=== PATIENT | female | born 1980 | race Caucasian/White ===

== ENCOUNTER 2018-10-26 18:16 | Observation (INO) | payer OTHER ==
[~2018-10-26] VITALS: Ht 162.6 cm; Wt 59.0 kg
[~2018-10-26 18:16] MED LIST: ALBU90OI INH; AMOX500 PO; AZIT250 PO; Azithromycin250 MG PO; Crutch1 EACH MISC; DEXT30SU PO; HYDACE5 PO; IBUP600 PO; LEVFLO500 PO; Mucinex600 MG PO; NAPR500 PO; Norco 10-325 T1 EACH PO; Norco 5-325 Ta1 EACH PO; PRODEXEL PO; Prednisone20 MG PO; Ventolin/Prove6.7 GM INH; Zofran Odt8 MG SL; [UNRECOGNIZED DRUG - CODE] PO
[2018-10-26 20:30] LABS: Calcium, Ionized (POC) 1.11 mmol/L (1.10-1.46); Chloride (POC) 106 mmol/L (98-108); Creatinine (POC) 0.7 mg/dL (0.6-1.0); Glucose (ISTAT POC) 90 mg/dL (70-99); Hemoglobin (POC) 14.3 g/dL (12.0-16.0); Potassium (POC) 3.6 mmol/L (3.5-5.5); Sodium (POC) 140 mmol/L (135-148); Total CO2 (POC) 22 mmol/L (21-32)
--- NOTE | 2018-10-28 07:49 | NUR ---
SHIFT SUMMARY PT A&O X4 T/O SHIFT. CHEST TUBE TO R ANT CHEST WALL TO WATER SEAL AND SUCTION PER ORERS. LS CLEARER THIS AM IN RL BASE. PT DENIES SOB T/O SHIFT; RA. PAIN MANGED PER EMAR. PT INDEPENDENT IN ROOM. PT ACCEDENTLY PULLED ON TUBE APPROX. 0140, SLIGHT GAP BETWEEN DRESSING AND SKIN TOP OF DRESSING NOTED; REINFORED FLUSH WITH SKING, LS CLEAR, PT DENIES SOB OR CHANGE IN PAIN, O2 SATS 100% ON RA; CHEST TUBE WATER SEAL WITHOUT LEAKS; CHARGE AND RN STRUCTURAL DRAFTSMAN NOTIFIED; REASSESSED 0210 AND BEFORE SHIFT CHANGE. NO CHANGE IN PT CONDITION. NO CREPITUS NOTED TO CHEST WALL/SHOULDER/NECKLINE T/O SHIFT. DR. FRYE NOTIFIED IN PERSON DURING AM ROUNDS. CALL LIGHT IN REACH; PT DEMONSTRATES USE. REPORT GIVEN TO DAY SHIFT RN.
--- NOTE | 2018-10-28 15:59 | NUR ---
1258 ITCHING BENADRYL GIVEN PER PATIENT REQUEST FOR ITCHING. NO VISIBLE REDNESS OR RASH. PATIENT REQUESTS DOOR BE SHUT AND NURSE ROUNDING NOT BE DONE PATIENT STATES SHE WILL PRESS CALL LIGHT IF SHE NEEDS ANYTHING
--- NOTE | 2018-10-28 16:01 | NUR ---
0523 ROUNDING PATIENT REQUESTS DOOR TO ROOM BE SHUT AND NO NURSE ROUNDING BE DONE SHE WOULD LIKE TO SLEEP PATIENT WILL USE CALL LIGHT IF SHE HAS ANY NEEDS
--- NOTE | 2018-10-28 16:34 | NUR ---
PATIENT NAUSEATED AND SOME BILE EMESIS. MEDICATED WITH ANTIEMETIC
--- NOTE | 2018-10-28 17:46 | NUR ---
SUMMARY PATIENT PAIN CURRENTLY 2/10 FEELS THAT TORADOL WAS EFFECTIVE, PT DENIES ITCHING AT THIS TIME. CHEST TUBE WITHOUT OUTPUT, NO AIR LEAK OR CREPITUS PATIENT DENIES SOB
--- NOTE | 2018-10-28 20:30 | NUR ---
PT WAS VERY AGITATED AND SWEARING AT HER NURSE, C/O DOSAGE ON MEDICATION AND GENERALIZED CARE SINCE COMING TO THE HOSPITAL. PT STATES SHE "WANTS TO GO HOME AND SHE IS READY TO RIP THE CHEST TUBE OUT", PT DENIES PAIN, PT IS C/O ITCHING AND LACK OF SLEEP. BED BATH AND LINEN CHAGE WAS OFFERED, SHE REFUSED. PT WAS QUESTIONED ABOUT POSSIBLE WITHDRAWAL. PT DENIES SUBSTANCE ABUSE, STATES SHE SMOKES 1 PACK PER DAY AND TAKES 50 MG PO BEDEDRYL AT HOME. PT HAS NICOTINE GUM ORDERED BUT STATES IT WAS MAKING HER NAUSEOUS. I WAS ABLE TO CALM THE PT. THE SURGEON WAS CALLED BY THE RN TO OBTAIN 50 MG PO BENADRYL FOR ITCHING AND A NICOTINE PATCH. PRN AMBIEN WAS ALSO ORDERED.
--- NOTE | 2018-10-29 04:54 | NUR ---
SUMMARY AFTER MEDICATING WITH ADDITIONAL BENADRYL AND NICOTINE PATCH, PT APPEARS CALMER NOT CURSING AT NURSE. DENIED FURTHER NEED. SLEPT BETWEEN DOSING INCLUDING PO PAIN MED X 1. NIGHT PROGRESSED PT DISCUSSED TX PLAN,MEDS,AND LAB, XRAY RESULTS WERE RELAYED TO HER BY DOCTORS AND PT AGREED TO USE I.S. WHICH SHE PREVIOUSLY REFUSED. I ALSO AVISED PT IF SHE HAS FURTHER QUESTIONS THAT HAVE BEEN CONCERNING HER OR SHE FEELS NOT FULLY ANSWERED, THE DOCTOR CAN BE ASKED FOR MORE DETAILS WHEN HE MAKES ROUNDS TODAY.PT DECLINED OFFER OF SLEEPER TONIGHT AND HAS CONTINUED TO DENY ANY FURTHER NEEDS T/O NIGHT. REPORTS PLEASED WITH BENADRYL SHE HAS BEEN ABLE TO SLEEP AND ITCHING HAS BEEN MINIMAL.CONT TO DENY CP OR SOB. PLEURAVAC REMAINS AT 20 CM H2O WITH WALL SX.
[2018-10-29] MEDS ORDERED: Norco 10-325 T1 EACH PO (14:32)
--- NOTE | 2018-10-29 14:51 | NUR ---
DISCHARGED PT DC'D. DC'D IV, CATHETER INTACT. REVIEWED DC PAPERWORK W/PT; VERBALIZED UNDERSTANDING. PT LEFT UNIT IN WC W/POSSESSIONS AND DC PAPERWORK IN HAND.
== END 2018-10-29 14:53 | disposition home or self-care (01) ==
LOC: ER 18:16 → ERHOLD 18:17 → SURS 10-27 12:31
PROVIDERS: Physician Assistant; ADMIT Surgery
DX: J93.83 Other pneumothorax (principal); J43.9 Emphysema, unspecified; R79.89 Other specified abnormal findings of blood chemistry; F17.210 Nicotine dependence, cigarettes, uncomplicated
CPT/HCPCS: 32551; 71045; 71046; 71250; 71260; 80047; 85014; 85379; 96372; 96374; 96375; 96376; 99285-25; G0378; J1170; J1650; J1885; J2060; J2405; J3010; Q0163; Q9967

== ENCOUNTER 2018-12-20 22:26 | Emergency (ER) | payer SELFPAY ==
[~2018-12-20] VITALS: Ht 162.6 cm; Wt 59.0 kg
[2018-12-20] MEDS ORDERED: Cheratussin AC118 ML PO (23:26)
== END 2018-12-20 23:32 | disposition home or self-care (01) ==
LOC: ER 22:26
DX: R07.89 Other chest pain (principal); F17.210 Nicotine dependence, cigarettes, uncomplicated
CPT/HCPCS: 71046; 99283-25

== ENCOUNTER 2018-12-28 17:00 | Emergency (ER) | payer SELFPAY ==
[~2018-12-28] VITALS: Ht 162.6 cm; Wt 59.0 kg
[~2018-12-28 17:00] MED LIST changes: +Cheratussin AC118 ML PO
[2018-12-28] MEDS ORDERED: TUSSIONEX PENN115 ML PO (18:21)
[2018-12-28] MEDS ORDERED: Zithromax250 MG PO (18:23)
== END 2018-12-28 18:27 | disposition home or self-care (01) ==
LOC: ER 17:00
DX: R05 Cough (principal); F17.210 Nicotine dependence, cigarettes, uncomplicated
CPT/HCPCS: 99283

== ENCOUNTER 2019-04-04 16:11 | Emergency (ER) | payer SELFPAY ==
[~2019-04-04] VITALS: Ht 162.6 cm; Wt 59.0 kg
[~2019-04-04 16:11] MED LIST changes: +BENZ100A PO; +Flonase 0.05% N16 GM; +Sudogest30 MG PO; +TUSSIONEX PENN115 ML PO; +Zithromax250 MG PO
[2019-04-04 16:55] LABS: BASOPHILS ABSOLUTE AUTO 0.04 K/mm3 (0.00-0.23); BASOPHILS PERCENT AUTO 0 % (0-2); EOSINOPHILS ABSOLUTE AUTO 0.14 K/mm3 (0.00-0.68); EOSINOPHILS PERCENT AUTO 2 % (0-6); Hematocrit 41.9 % (33.0-51.0); Hemoglobin 13.9 g/dL (11.5-16.0); IMMATURE GRAN ABSOLUTE AUTO 0.02 K/mm3 (0.00-0.10); IMMATURE GRAN PERCENT AUTO 0 % (0-1); LYMPHOCYTES PERCENT AUTO 20 % (21-46); MONOCYTES ABSOLUTE AUTO 0.64 K/mm3 (0.16-1.47); MONOCYTES PERCENT AUTO 7 % (4-13); Mean Corpuscular HGB 32.3 pg (26.0-34.0); Mean Corpuscular HGB Conc 33.2 g/dL (31.5-36.5); Mean Corpuscular Volume 97 fL (80-100); Mean Platelet Volume 10.3 fL (9.1-12.4); NEUTROPHILS ABSOLUTE AUTO 6.73 K/mm3 (1.96-9.15); NEUTROPHILS PERCENT AUTO 71 % (41-73); Platelet Count 362 K/mm3 (150-400); RDW Coefficient Variation 13.2 % (11.7-14.2); RDW Standard Deviation 48.1 fL (35.1-46.3); Red Blood Cell Count 4.31 M/mm3 (3.80-5.20); White Blood Cell Count 9.47 K/mm3 (4.00-11.30)
[2019-04-04 17:17] LABS: Alanine Aminotransfer (ALT/SGP 22 U/L (12-78); Albumin, Blood 3.9 g/dL (3.4-5.0); Albumin/Globulin Ratio 1.1 (0.8-1.8); Alk Phos 61 U/L (50-136); Anion Gap 5 mmol/L (6-16); Aspartate Aminotrans (AST/SGOT 18 U/L (12-37); Bilirubin, Total 0.7 mg/dL (0.1-1.0); Blood Urea Nitrogen 11 mg/dL (8-24); Bun/Creatinine Ratio 13.7 (12.0-20.0); CO2, Blood 26 mmol/L (21-32); Calcium, Blood 8.6 mg/dL (8.5-10.1); Chloride, Blood 105 mmol/L (98-108); Globulin, Blood 3.4 g/dL (2.2-4.0); Glomerular Filtration Rate >60 (60-); Glucose, Blood 113 mg/dL (70-99); Potassium, Blood 3.6 mmol/L (3.5-5.5); Sodium, Blood 136 mmol/L (136-145); Total Protein, Blood 7.3 g/dL (6.4-8.2); Troponin I <0.015 ng/mL (0.000-0.040)
[2019-04-04] MEDS ORDERED: Norco 5-325 Ta1 EACH PO (18:19)
[2019-04-04] MEDS ORDERED: IBUP600 PO (18:19)
== END 2019-04-04 18:27 | disposition home or self-care (01) ==
LOC: ER 16:11
PROVIDERS: Physician Assistant
DX: R09.1 Pleurisy (principal); F17.200 Nicotine dependence, unspecified, uncomplicated
CPT/HCPCS: 36415; 71046; 80053; 84484; 85025; 93005; 93010; 96374; 99284-25; J1885

== ENCOUNTER → 2022-10-20 | Outpatient (CLI) | payer BC ==
[2022-10-21 10:14] LABS: Alanine Aminotransfer (ALT/SGP 36 U/L (12-78); Albumin, Blood 4.1 g/dL (3.4-5.0); Albumin/Globulin Ratio 1.1 (0.8-1.8); Alk Phos 66 U/L (50-136); Anion Gap 3 mmol/L (6-16); Aspartate Aminotrans (AST/SGOT 21 U/L (12-37); Bilirubin, Total 0.3 mg/dL (0.1-1.0); Blood Urea Nitrogen 11 mg/dL (8-24); CHOL/HDL RATIO 2.8; CO2, Blood 28 mmol/L (21-32); Calcium, Blood 9.4 mg/dL (8.5-10.1); Chloride, Blood 106 mmol/L (98-108); Cholesterol 193 mg/dL (50-200); Creatinine, Blood 0.79 mg/dL (0.40-1.00); Ferritin, Serum 45 ng/mL (8-252); Globulin, Blood 3.7 g/dL (2.2-4.0); Glomerular Filtration Rate 95 (60-); Glucose, Blood 107 mg/dL (70-99); HDL Cholesterol 69 mg/dL (>39); Iron Serum 56 ug/dL (50-170); LDL/HDL RATIO 1.6; Low Density Lipoprotein Chol 109 mg/dL (0-110); Percent Saturation 15.3 % (15.0-50.0); Potassium, Blood 4.5 mmol/L (3.5-5.5); Sodium, Blood 137 mmol/L (136-145); Total Iron Binding Capacity 365 ug/dL (250-450); Total Protein, Blood 7.8 g/dL (6.4-8.2); Triglycerides 76 mg/dL (30-160); Very Low Density Lipoprot Chol 15 mg/dL (6-32)
[2022-10-21 10:15] LABS: BASOPHILS ABSOLUTE AUTO 0.04 K/mm3 (0.00-0.23); BASOPHILS PERCENT AUTO 1 % (0-2); EOSINOPHILS PERCENT AUTO 1 % (0-6); Hematocrit 46.3 % (33.0-51.0); Hemoglobin 15.9 g/dL (11.5-16.0); IMMATURE GRAN ABSOLUTE AUTO 0.04 K/mm3 (0.00-0.10); IMMATURE GRAN PERCENT AUTO 1 % (0-1); LYMPHOCYTES PERCENT AUTO 26 % (21-46); MONOCYTES ABSOLUTE AUTO 0.51 K/mm3 (0.16-1.47); MONOCYTES PERCENT AUTO 6 % (4-13); Mean Corpuscular HGB 32.1 pg (26.0-34.0); Mean Corpuscular HGB Conc 34.3 g/dL (31.5-36.5); Mean Corpuscular Volume 93 fL (80-100); Mean Platelet Volume 11.2 fL (9.1-12.4); NEUTROPHILS ABSOLUTE AUTO 5.83 K/mm3 (1.96-9.15); NEUTROPHILS PERCENT AUTO 66 % (41-73); Platelet Count 413 K/mm3 (150-400); RDW Standard Deviation 44.7 fL (35.1-46.3); Red Blood Cell Count 4.96 M/mm3 (3.80-5.20); White Blood Cell Count 8.82 K/mm3 (4.00-11.30)
[2022-10-21 12:08] LABS: Free Thyroxine 0.77 ng/dL (0.70-1.60)
[2022-10-22 08:13] LABS: HIV AB/P24 AG SCREEN Non Reactive (Non Reactive)
== END | disposition home or self-care (01) ==
LOC: LAB 15:46 → LAB SHORT 15:46
PROVIDERS: Family Medicine
DX: Z11.3 Encounter for screening for infections with a predominantly sexual mode of transmission (principal); Z11.59 Encounter for screening for other viral diseases; Z13.6 Encounter for screening for cardiovascular disorders; Z72.51 High risk heterosexual behavior; L65.9 Nonscarring hair loss, unspecified; Z91.89 Other specified personal risk factors, not elsewhere classified; Z79.899 Other long term (current) drug therapy
CPT/HCPCS: 80053; 80061; 82728; 83540; 83550; 84439; 84443; 85025; 86592; 86803; 87389

== ENCOUNTER 2024-09-24 09:57 | Emergency (ER) | payer BC ==
[~2024-09-24] VITALS: Ht 162.6 cm; Wt 59.0 kg
[2024-09-24 10:02] VITALS: BP 147/111
== END 2024-09-24 13:15 | disposition left against medical advice (07) ==
LOC: ER 09:57
DX: R06.02 Shortness of breath (principal); Z53.29 Procedure and treatment not carried out because of patient's decision for other reasons
CPT/HCPCS: 71046; 99281-25

== ENCOUNTER 2024-09-25 12:53 | Emergency (ER) | payer BC ==
[~2024-09-25] VITALS: Ht 160 cm; Wt 59.0 kg
[2024-09-25 13:25] VITALS: BP 137/103
[2024-09-25 13:51] LABS: BASOPHILS ABSOLUTE AUTO 0.05 K/mm3 (0.00-0.23); BASOPHILS PERCENT AUTO 1 % (0-2); EOSINOPHILS ABSOLUTE AUTO 0.37 K/mm3 (0.00-0.68); EOSINOPHILS PERCENT AUTO 6 % (0-6); Hematocrit 42.5 % (33.0-51.0); Hemoglobin 14.5 g/dL (11.5-16.0); IMMATURE GRAN ABSOLUTE AUTO 0.01 K/mm3 (0.00-0.10); IMMATURE GRAN PERCENT AUTO 0 % (0-1); LYMPHOCYTES ABSOLUTE AUTO 0.98 K/mm3 (0.84-5.20); LYMPHOCYTES PERCENT AUTO 15 % (21-46); MONOCYTES ABSOLUTE AUTO 0.62 K/mm3 (0.16-1.47); MONOCYTES PERCENT AUTO 9 % (4-13); Mean Corpuscular HGB 33.3 pg (26.0-34.0); Mean Corpuscular HGB Conc 34.1 g/dL (31.5-36.5); Mean Corpuscular Volume 98 fL (80-100); Mean Platelet Volume 9.4 fL (9.1-12.4); NEUTROPHILS ABSOLUTE AUTO 4.56 K/mm3 (1.96-9.15); NEUTROPHILS PERCENT AUTO 69 % (41-73); Platelet Count 402 K/mm3 (150-400); RDW Coefficient Variation 13.4 % (11.7-14.2); Red Blood Cell Count 4.36 M/mm3 (3.80-5.20); White Blood Cell Count 6.59 K/mm3 (4.00-11.30)
[2024-09-25 14:18] LABS: Albumin, Blood 3.3 g/dL (3.4-5.0); Albumin/Globulin Ratio 0.8 (0.8-1.8); Bilirubin, Total 0.6 mg/dL (0.1-1.0); Bun/Creatinine Ratio 10.4 (12.0-20.0); Calcium, Blood 9.3 mg/dL (8.5-10.1); Creatinine, Blood 0.77 mg/dL (0.40-1.00); Globulin, Blood 4.1 g/dL (2.2-4.0); Potassium, Blood 4.2 mmol/L (3.5-5.5); Total Protein, Blood 7.4 g/dL (6.4-8.2)
== END 2024-09-25 16:15 | disposition home or self-care (01) ==
LOC: ER 12:53
PROVIDERS: Student in an Organized Health Care Education/Training Program
DX: M25.512 Pain in left shoulder (principal); M54.2 Cervicalgia; J44.9 Chronic obstructive pulmonary disease, unspecified; F17.210 Nicotine dependence, cigarettes, uncomplicated; Z79.899 Other long term (current) drug therapy
CPT/HCPCS: 80053; 84484; 85025; 93005; 93010; 99284-25

== ENCOUNTER 2025-02-25 16:45 | Emergency (ER) | payer BC ==
[~2025-02-25] VITALS: Ht 160 cm; Wt 61.2 kg
[2025-02-25 16:55] VITALS: BP 135/95
[2025-02-25] MEDS ORDERED: Ketorolac Tromethamine 30mg Vial IM ONE (17:05)
[2025-02-25] MEDS ORDERED: Ketorolac Tromethamine 15mg Vial IM ONE (19:40)
[2025-02-25] MEDS ORDERED: IBUP600 PO (19:57)
[2025-02-25] MEDS ORDERED: LIDO700A20 TOP (19:57)
== END 2025-02-25 20:19 | disposition home or self-care (01) ==
LOC: ER 16:45
DX: R07.89 Other chest pain (principal); R07.81 Pleurodynia; F17.200 Nicotine dependence, unspecified, uncomplicated; Z79.899 Other long term (current) drug therapy
CPT/HCPCS: 71046; 71100; 99283-25; J1885